=== PATIENT | male | born 1985 | race Caucasian/White ===

== ENCOUNTER 2019-09-26 14:26 | Emergency (ER) | payer OTHER ==
[2019-09-26 14:31] VITALS: RESP 16
[2019-09-26] MEDS ORDERED: PANTOPRAZOLE 40 MG/10 ML VIAL IVP STA (14:44)
--- NOTE | 2019-09-26 14:47 | ED ---
General Adult HPI - General Chief complaint: Abdominal Pain Stated complaint: Abd pain Time Seen by Provider: 09/26/19 14:34 Source: patient, RN notes reviewed, old records reviewed Mode of arrival: ambulatory Limitations: no limitations - History of Present Illness Initial comments: 34-year-old male patient presents ED chief complaint of abdominal pain. Patient denies any previous past medical history any regular medications. Patient reports that he has had some generalized myalgias. Also reports that he has had waxing and waning epigastric abdominal pain for approximately 4 days, reports that it is in his epigastric region. Reports some nausea without emesis. Denies any diarrhea. Patient reports that when the pain is bad he gets somewhat lightheaded. Denies any other complaints. Denies any previous surgeries on abdomen. Systemic: Pt denies fatigue, fever/chills, rash. Pt denies weakness, night sweats, weight loss. Neuro: Pt denies headache, visual disturbances, syncope or pre-syncope. HEENT: Pt denies ocular discharge or irritation, otalgia, rhinorrhea, pharyngitis or notable lymphadenopathy. Cardiopulmonary: Pt denies chest pain, SOB, heart palpitations, dyspnea on exertion. Abdominal/GI: Pt denies v/d. : Pt denies dysuria, burning w/ urination, frequency/urgency. Denies new onset urinary or bowel incontinence. MSK: Pt denies myalgia, loss of strength or function in extremities. Neuro: Pt denies new onset weakness, paresthesias. - Related Data Previous Rx's Medication Instructions Recorded HYDROcodone/APAP 5-325MG [Galt 1 each PO Q6HR PRN #20 tab 06/05/15 5-325] Ibuprofen [Motrin] 800 mg PO Q8HR PRN #30 tab 06/05/15 Allergies Allergy/AdvReac Type Severity Reaction Status Date / Time No Known Allergies Allergy Verified 09/26/19 14:31 Review of Systems ROS Statement: Those systems with pertinent positive or pertinent negative responses have been documented in the HPI. ROS Other: All systems not noted in ROS Statement are negative. Past Medical History Additional Past Medical History / Comment(s): ptsd History of Any Multi-Drug Resistant Organisms: None Reported Past Surgical History: Orthopedic Surgery Additional Past Surgical History / Comment(s): knee Past Psychological History: PTSD Smoking Status: Never smoker Past Alcohol Use History: None Reported Past Drug Use History: None Reported General Exam - General Exam Comments Initial Comments: Constitutional: NAD, AOX3, Pt has pleasant affect. HEENT: NC/AT, trachea midline, neck supple, no lymphadenopathy. Posterior pharynx non erythematous, without exudates. External ears appear normal, without discharge. Mucous membranes moist. Eyes PERRLA, EOM intact. There is no scleral icterus. No pallor noted. Cardiopulmonary: RRR, no murmurs, rubs or gallops, no JVD noted. Lungs CTAB in anterior and posterior sanders. No peripheral edema. Abdominal exam: Abdomen soft and non-distended. Abdomen mildly tender to palpation epigastric region. Other areas of abdominal tenderness. No guarding noted. No ecchymoses.. Bowel sounds active in LLQ. No hepatosplenomegaly. No ecchymosis Neuro: CN II-XII grossly intact. No nuchal rigidity. No raccon eyes, no hopkins sign, no hemotympanum. No cervical spinal tenderness. MSK: No posterior calf tenderness bilaterally, homans sign negative bilaterally. Posterior tibialis and radial pulse +2 bilaterally. Sensation intact in upper and lower extremities. Full active ROM in upper and lower extremities, 5/5 stregnth. Limitations: no limitations Course Vital Signs 09/26/19 14:29 Temperature 98.8 F Pulse Rate 60 Respiratory 16 Rate Blood Pressure 121/71 O2 Sat by Pulse 100 Oximetry Medical Decision Making - Medical Decision Making 34-year-old male patient presents ED chief complaint of abdominal pain. Patient denies any previous past medical history any regular medications. Patient reports that he has had some generalized myalgias. Also reports that he has had waxing and waning epigastric abdominal pain for approximately 4 days, reports that it is in his epigastric region. Reports some nausea without emesis. Denies any diarrhea. Patient reports that when the pain is bad he gets somewhat lightheaded. Denies any other complaints. Denies any previous surgeries on abdomen. Patient vital signs stable, afebrile. Patient vital signs stable, afebrile. Physical exam displayed mild amount of epigastric abdominal tenderness. Investigations are significant for lipase of 1042. No transaminitis. Bilirubin within normal limits. UA negative. Lactic acid . Negative. KUB displayed ossific bowel pattern. Nonspecific puncture metallic density over the right ilium. Gallbladder displayed gallbladder wall polyp adherent stone. Patient was offered admission to hospital for pancreatitis. Patient regarding alcohol use. Patient declined. Patient will be discharged with outpatient follow-up with GI Friday and close return precautions. Patient tolerated oral intake. His not have any nausea or vomiting. Case discussed with Dr. Molina. - Lab Data Result diagrams: 09/26/19 14:56 09/26/19 14:56 Lab Results 09/26/19 09/26/19 09/26/19 Range/Units 14:56 14:56 14:56 WBC 8.2 (3.8-10.6) k/uL RBC 4.54 (4.30-5.90) m/uL Hgb 15.6 (13.0-17.5) gm/dL Hct 45.9 (39.0-53.0) % MCV 101.2 H (80.0-100.0) fL MCH 34.5 (25.0-35.0) pg MCHC 34.1 (31.0-37.0) g/dL RDW 11.5 (11.5-15.5) % Plt Count 148 L (150-450) k/uL Neutrophils % 74 % Lymphocytes % 14 % Monocytes % 7 % Eosinophils % 2 % Basophils % 1 % Neutrophils # 6.0 (1.3-7.7) k/uL Lymphocytes # 1.2 (1.0-4.8) k/uL Monocytes # 0.5 (0-1.0) k/uL Eosinophils # 0.2 (0-0.7) k/uL Basophils # 0.1 (0-0.2) k/uL Sodium 139 (137-145) mmol/L Potassium 4.2 (3.5-5.1) mmol/L Chloride 102 (98-107) mmol/L Carbon Dioxide 28 (22-30) mmol/L Anion Gap 9 mmol/L BUN 13 (9-20) mg/dL Creatinine 0.84 (0.66-1.25) mg/dL Est GFR (CKD-EPI)AfAm >90 (>60 ml/min/1.73 sqM) Est GFR (CKD-EPI)NonAf >90 (>60 ml/min/1.73 sqM) Glucose 104 H (74-99) mg/dL Plasma Lactic Acid Murali 0.6 L (0.7-2.0) mmol/L Calcium 10.1 (8.4-10.2) mg/dL Total Bilirubin 0.4 (0.2-1.3) mg/dL AST 28 (17-59) U/L ALT 25 (21-72) U/L Alkaline Phosphatase 39 (38-126) U/L Total Protein 7.3 (6.3-8.2) g/dL Albumin 4.4 (3.5-5.0) g/dL Lipase 1042 H (23-300) U/L Urine Color Urine Appearance (Clear) Urine pH (5.0-8.0) Ur Specific [place] (1.001-1.035) Urine Protein (Negative) Urine Glucose (UA) (Negative) Urine Ketones (Negative) Urine Blood (Negative) Urine Nitrite (Negative) Urine Bilirubin (Negative) Urine Urobilinogen (<2.0) mg/dL Ur Leukocyte Esterase (Negative) 09/26/19 Range/Units 14:56 WBC (3.8-10.6) k/uL RBC (4.30-5.90) m/uL Hgb (13.0-17.5) gm/dL Hct (39.0-53.0) % MCV (80.0-100.0) fL MCH (25.0-35.0) pg MCHC (31.0-37.0) g/dL RDW (11.5-15.5) % Plt Count (150-450) k/uL Neutrophils % % Lymphocytes % % Monocytes % % Eosinophils % % Basophils % % Neutrophils # (1.3-7.7) k/uL Lymphocytes # (1.0-4.8) k/uL Monocytes # (0-1.0) k/uL Eosinophils # (0-0.7) k/uL Basophils # (0-0.2) k/uL Sodium (137-145) mmol/L Potassium (3.5-5.1) mmol/L Chloride (98-107) mmol/L Carbon Dioxide (22-30) mmol/L Anion Gap mmol/L BUN (9-20) mg/dL Creatinine (0.66-1.25) mg/dL Est GFR (CKD-EPI)AfAm (>60 ml/min/1.73 sqM) Est GFR (CKD-EPI)NonAf (>60 ml/min/1.73 sqM) Glucose (74-99) mg/dL Plasma Lactic Acid Murali (0.7-2.0) mmol/L Calcium (8.4-10.2) mg/dL Total Bilirubin (0.2-1.3) mg/dL AST (17-59) U/L ALT (21-72) U/L Alkaline Phosphatase (38-126) U/L Total Protein (6.3-8.2) g/dL Albumin (3.5-5.0) g/dL Lipase (23-300) U/L Urine Color Colorless Urine Appearance Clear (Clear) Urine pH 6.0 (5.0-8.0) Ur Specific [place] 1.002 (1.001-1.035) Urine Protein Negative (Negative) Urine Glucose (UA) Negative (Negative) Urine Ketones Negative (Negative) Urine Blood Negative (Negative) Urine Nitrite Negative (Negative) Urine Bilirubin Negative (Negative) Urine Urobilinogen <2.0 (<2.0) mg/dL Ur Leukocyte Esterase Negative (Negative) - EKG Data -: EKG Interpreted by Nc EKG Comments: Sinus bradycardia, ventricular rate 52, NJ interval 132, QRS 100, QT/QTc 422/392. No concern of acute ischemia at this time. Disposition Clinical Impression: Pancreatitis Disposition: HOME SELF-CARE Condition: Stable Instructions (If sedation given, give patient instructions): Pancreatitis (ED) Additional Instructions: Follow-up with GI consult on Friday. Return to ER if condition worsens. If Nausea vomiting develops. Follow-up with primary care provider in 1-2 days. Is patient prescribed a controlled substance at d/c from ED?: No Referrals: None,Stated [Primary Care Provider] - 1-2 days Shadia Crocker MD [STAFF PHYSICIAN] - 1-2 days
[2019-09-26 15:08] LABS: Basophils # (A) 0.1 k/uL (0-0.2); Basophils % (A) 1 %; Eosinophils # (A) 0.2 k/uL (0-0.7); Eosinophils % (A) 2 %; HCT 45.9 % (39.0-53.0); HGB 15.6 gm/dL (13.0-17.5); Lymphocytes # (A) 1.2 k/uL (1.0-4.8); Lymphocytes % (A) 14 %; MCH 34.5 pg (25.0-35.0); MCHC 34.1 g/dL (31.0-37.0); MCV 101.2 fL (80.0-100.0); Mean Platelet Volume 6.2; Monocytes # (A) 0.5 k/uL (0-1.0); Monocytes % (A) 7 %; Neutrophils % (A) 74 %; Platelet Count 148 k/uL (150-450); RBC 4.54 m/uL (4.30-5.90); RDW 11.5 % (11.5-15.5); WBC 8.2 k/uL (3.8-10.6)
[2019-09-26 15:09] LABS: Appearance,Urine Clear (Clear); Bilirubin,Urine Negative (Negative); Blood,Urine Negative (Negative); Color,Urine Colorless; Glucose,Urine (UA) Negative (Negative); Ketones,Urine Negative (Negative); Leukocyte Esterase,Urine Negative (Negative); Nitrite,Urine Negative (Negative); Protein,Urine Negative (Negative); Specific Gravity,Urine 1.002 (1.001-1.035); Urobilinogen,Urine <2.0 mg/dL (<2.0)
--- NOTE | 2019-09-26 15:13 | XR ---
KUB HISTORY: Abdomen pain Frontal KUB submitted on 2 images No comparisons Lung bases are clear. There is no evident bowel extraction or pneumoperitoneum. 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 There are no pathologic calcifications. Punctate metallic density superimposed over t he right ilium. IMPRESSION: Nonspecific bowel gas pattern. Nonspecific foreign body.
[2019-09-26] MEDS: SODIUM CHLORIDE 0.9% 1,000 ML IV STA ×2 (15:20→16:12)
[2019-09-26 15:23] LABS: ALT 25 U/L (21-72); AST 28 U/L (17-59); African American GFR (CKD) >90 (>60 ml/min/1.73 sqM); Albumin 4.4 g/dL (3.5-5.0); Alkaline Phosphatase 39 U/L (38-126); Anion Gap 9 mmol/L; Blood Urea Nitrogen 13 mg/dL (9-20); Calcium 10.1 mg/dL (8.4-10.2); Carbon Dioxide 28 mmol/L (22-30); Chloride 102 mmol/L (98-107); Glucose 104 mg/dL (74-99); Non-African American GFR(CKD) >90 (>60 ml/min/1.73 sqM); Potassium 4.2 mmol/L (3.5-5.1); Sodium 139 mmol/L (137-145); Total Bilirubin 0.4 mg/dL (0.2-1.3); Total Protein 7.3 g/dL (6.3-8.2)
[2019-09-26] MEDS ORDERED: SODIUM CHLORIDE 0.9% 500 ML 500 ML IV STA (15:29)
--- NOTE | 2019-09-26 16:19 | US ---
EXAMINATION TYPE: US gallbladder DATE OF EXAM: 09/26/2019 COMPARISON: NONE CLINICAL HISTORY: pancreatitis. Epigastric pain, pancreatitis EXAM MEASUREMENTS: Liver Length: 13.5 cm Gallbladder Wall: 0.2 cm CBD: 0.4 cm Right Kidney: 10.1 x 4.0 x 5.4 cm Pancreas: No evident mass Liver: wnl Gallbladder: polyp = 0.3cm, echogenic focus in the dependent portion of the gallbladder is noted wit hout shadowing Evidence for sonographic Jama's sign: no CBD: wnl Right Kidney: no evidence of hydronephrosis or mass There is no ascites. IMPRESSION: No peripancreatic fluid collections identified. Gallbladder wall polyp or adherent stone.
[2019-09-26 17:42] VITALS: BP 113/64; PULSE 58; TEMP 98
== END 2019-09-26 17:42 | disposition home or self-care (01) ==
LOC: EC 14:26
DX: K85.90 Acute pancreatitis without necrosis or infection, unspecified (principal); M79.10 Myalgia, unspecified site; K82.4 Cholesterolosis of gallbladder; R42 Dizziness and giddiness; Z53.20 Procedure and treatment not carried out because of patient's decision for unspecified reasons
CPT/HCPCS: 36415; 74018; 76705; 80053; 81003; 83605; 83690; 85025; 93005; 96360; 99285